=== PATIENT | male | born 1995 | race Caucasian/White ===

== ENCOUNTER 2019-01-25 19:27 | Emergency (ER) | payer MEDICAID ==
[~2019-01-25] VITALS: Ht 170.2 cm; Wt 63.5 kg
[2019-01-25 19:32] VITALS: BP_SYST 135
[2019-01-25 20:34] VITALS: BP_SYST 128
== END 2019-01-25 20:34 | disposition home or self-care (01) ==
LOC: SED 19:27
DX: H01.005 Unspecified blepharitis left lower eyelid (principal); R03.0 Elevated blood-pressure reading, without diagnosis of hypertension
CPT/HCPCS: 99283